=== PATIENT | male | born 1980 | race African-American/Black ===

== ENCOUNTER 2016-04-29 17:49 | Emergency (ER) | payer OTHER ==
--- NOTE | ~2016-04-29 | CT2 ---
[facility] A Service of [facility] RADIOLOGY TEXT RESULTS PATIENT: PRISCILLA DE LA CRUZ LOCATION: [facility] : 84 UNIT #: [id number] AGE: [address]: Kristin Stone MD SEX: M ORDER DR: [id number] [facility] [address] [place], [place] [address] [id number] MR#: [id number] Acc #: [id number] NAME: PRISCILLA DE LA CRUZ. : 1980 SEX: M STUDY DATE/TIME: 04/29/2016 18:45 UNIT: [facility] ROOM: STUDY DESCRIPTION: CT Abd and Pelv W Cont Attending Physician: Kristin Stone M.D. Ordering Physician: Chuy Galvin M.D. Primary Care Physician: No Primary Care Physician MEDICAL IMAGING REPORT This report is preliminary unless electronic signature is present EXAM CT abdomen and pelvis with contrast. HISTORY Nausea, vomiting, diarrhea, onset today. TECHNIQUE Axial images performed through the abdomen and pelvis following IV contrast. Multiplanar reconstructed images reviewed at a workstation. This CT exam was performed with one or more of the following radiation dose reduction techniques: automatic exposure control, adjustment of mA and/or kV according to patient size, and iterative reconstruction. FINDINGS Lung bases unremarkable. Liver, spleen, gallbladder, pancreas, kidneys and adrenal glands unremarkable. No free air or free fluid. The visualized GI tract unremarkable. Retroperitoneum unremarkable. PELVIS: Bladder, prostate, osseous structures are unremarkable. IMPRESSION Negative CT abdomen and pelvis with contrast. The appendix normal. Dictated by... Daria Huggins M.D. THIS IS AN ELECTRONICALLY VERIFIED REPORT Daria Huggins M.D. at 04/30/2016 2:06 PM LEI/larry [facility] A Service [facility] RADIOLOGY TEXT RESULTS PATIENT: PRISCILLA DE LA CRUZ LOCATION: [facility] : 84 UNIT #: [id number] AGE: [address]: Kristin Stone MD SEX: M ORDER DR: TD: 04/30/2016 09:56 JOB #: [id number] MEDICAL IMAGING REPORT COPY
[2016-04-29 18:07] LABS: BASOPHIL% 0.4 % (0-2.5); EOSINOPHIL% 0.3 % (0.0-7.0); HEMATOCRIT 59.9 % (38.0-50.0); HEMOGLOBIN 19.8 gm/dL (13.0-16.0); LYMPHOCYTE# 0.6 X10e3 (1.0-3.5); LYMPHOCYTE% 5.5 % (17.0-45.0); MEAN CELL VOLUME 96.7 FL (83-96); MEAN CORPUSCULAR HGB CONC 33.1 g/dL (30-36); MEAN PLATELET VOLUME 10.8 FL (6.5-11.5); MONOCYTE# 0.6 X10e3 (0-1.0); NEUTROPHIL# 9.4 X10e3 (1.5-7.1); NEUTROPHIL% 87.8 % (40-75); RED BLOOD COUNT 6.19 X10e (3.90-5.60); RED CELL DISTRIBUTION WIDTH 14.5 % (11.0-15.5); WHITE BLOOD COUNT 10.7 X10e3 (4.0-10.5)
[2016-04-29 18:10] LABS: ALBUMIN SERUM 5.5 g/dL (3.5-5.0); BILIRUBIN, DIRECT 0.3 mg/dL (0.0-0.2); BILIRUBIN,INDIRECT 0.6 mg/dL (0.0-0.9); BILIRUBIN,TOTAL 0.9 mg/dL (0.2-2.0); BUN/CREATININE RATIO 11.11; CALCIUM SERUM 10.7 mg/dL (8.4-10.2); CREATININE SERUM 1.8 mg/dL (0.6-1.4); GLOM FILT RATE Estimated 56.2 mL/min (>60); PROTEIN TOTAL SERUM 9.9 g/dL (6.0-8.3)
[2016-04-29 18:11] LABS: POTASSIUM 5.4 mmol/L (3.5-5.1)
[2016-04-29 18:22] LABS: PLATELET COUNT 162 X10e3 (140-420)
[2016-04-29 18:23] LABS: DIFF IND NO
[2016-04-29 19:57] LABS: URINE SOURCE CLEAN CATCH
[2016-04-29 21:35] LABS: URINE APPEARANCE CLEAR; URINE BILIRUBIN NEG (NEG); URINE BLOOD NEG (NEG); URINE COLOR YELLOW; URINE GLUCOSE NORM (NORM); URINE KETONE NEG (NEG); URINE LEUKOCYTE ESTERASE NEG (NEG); URINE NITRATE NEG (NEG); URINE PROTEIN NEG (NEG); URINE UROBILINOGEN NORM (NORM)
[2016-04-29 21:38] LABS: CULTURE INDICATED? NO
== END 2016-04-29 21:46 | disposition home or self-care (01) ==
LOC: CED 17:49
PROVIDERS: Emergency Medicine
DX: E87.6 Hypokalemia (principal); E86.0 Dehydration; F17.200 Nicotine dependence, unspecified, uncomplicated
CPT/HCPCS: 36415; 74177; 80048; 80076; 81003; 83690; 85025; 96361; 96374; 96375; 99284; J2270; J2765; Q9967

== ENCOUNTER 2016-06-11 10:33 | Emergency (ER) | payer OTHER | END 2016-06-11 10:42 | disposition home or self-care (01) | LOC: CED 10:33 | DX: S16.1XXA Strain of muscle, fascia and tendon at neck level, initial encounter (principal); F17.200 Nicotine dependence, unspecified, uncomplicated; V43.62XA Car passenger injured in collision with other type car in traffic accident, initial encounter; Y92.410 Unspecified street and highway as the place of occurrence of the external cause | CPT/HCPCS: 99283 ==